=== PATIENT | female | born 1955 | race Caucasian/White ===

== ENCOUNTER → 2016-08-02 | Outpatient (CLI) | payer MEDICARE, OTHER ==
[~2016-08-02] MED LIST: ALBU2.5V4 INH; ALBU8CC IH; ASPI-586 PO; ATOR10TA PO; CHOL10002 PO; CLIN-79 PO; CODE118S2 PO; DIAZ5TAB3 PO; EPIN0.3P2 IM; FERR-74 PO; FLC1T PO; FLUT1DIS3 IH; GBPN300C PO; LAMO200T14 PO; LIRA0.6P2 SC; LSRT50T PO; METF500T4 PO; METH2.5T PO; METH20TA34 PO; OMEG1CAP58 PO; OMEP20TA PO; OXYC1TAB7 PO; PIOG15TA22 PO; RALO60TA12 PO; RITU10VI IV; SERT100T8 PO; TIOT18CA IH; TIZAN4T PO
--- NOTE | 2016-08-02 13:21 | Diagnostic Imaging Report ---
INDICATION: Dyspnea and hypoxemia. PA and lateral views of the chest are obtained. Comparison is made study of 08/06/2015. FINDINGS: Overall heart size is within normal limits. There has been an increase in central pulmonary vascular prominence. There has been development of pleural thickening laterally on the left which appears to be related to multiple rib fractures. No pneumothorax or pleural fluid is identified. Increased density in the lingula may represent area of atelectasis or scarring. IMPRESSION: Left lateral rib fractures with developing pleural thickening. There is also atelectasis and/or scarring in the lingula with increase in central pulmonary vascular prominence. Dictated by: Dictated on workstation # [id number]
== END ==
LOC: RAD 11:09
PROVIDERS: ATTEND Physician Assistant Surgical
DX: R05 Cough (principal); S22.42XA Multiple fractures of ribs, left side, initial encounter for closed fracture; X58.XXXA Exposure to other specified factors, initial encounter
CPT/HCPCS: 71020

== ENCOUNTER → 2016-08-21 | Outpatient (CLI) | payer MEDICARE ==
--- NOTE | 2016-08-21 19:09 | Diagnostic Imaging Report ---
INDICATION: Chest wall pain. EXAMINATION: Two-view chest dated 08/21/2016. COMPARISON: 08/02/2016. FINDINGS: Heart is prominent and stable. Pulmonary vasculature is congested. There are increased markings throughout both lungs especially throughout the left mid and lower lung and at the right lung base. These findings are fairly stable. There is no evidence for pneumothorax. There are known left lateral rib fractures not as well seen on this examination. Adjacent pleural thickening or perhaps hematoma is noted. IMPRESSION: 1. Fairly stable appearance of the chest. Continued follow-up recommended. Dictated by: Dictated on workstation # [id number]
--- NOTE | 2016-08-21 19:12 | Diagnostic Imaging Report ---
INDICATION: Chest wall pain, history of fractures. EXAMINATION: Left rib series dated 08/21/2016. Correlation made to plain films from 08/02/2016. FINDINGS: Again noted are multiple left lateral rib fractures. Adjacent pleural thickening is noted. For the most part, this is stable although there may be mild focal increased density immediately medial to the fifth lateral rib. No pneumothorax is appreciated. IMPRESSION: 1. Multiple left lateral rib fractures similar to previous imaging with minimal increasing density in the periphery of the lung perhaps contusion or hematoma. Dictated by: Dictated on workstation # [id number]
== END ==
LOC: RAD 14:53
PROVIDERS: ATTEND Physician Assistant Surgical
DX: R07.89 Other chest pain (principal)
CPT/HCPCS: 71020; 71100